=== PATIENT | female | born 1940 | race Caucasian/White ===

== ENCOUNTER 2021-02-15 11:14 | Observation (INO) ==
[2021-02-15] MEDS ORDERED: ASPIRIN CHEW 324 MG PO STA (11:47)
[2021-02-15] MEDS ORDERED: SODIUM CHLORIDE 0.9% 1000ML 500 ML IV ONE (11:48)
--- NOTE | 2021-02-15 12:18 | XRay Report ---
XR chest 1V portable HISTORY: 80 years-old Female sob acute shortness of breath COMPARISON: Chest CT 01/06/2021 TECHNIQUE: Portable AP view of the chest FINDINGS: Cardiac silhouette is enlarged. Hazy ill-defined opacities are noted throughout the left midlung and left lung base. Ill-defined right lung base opacities are also noted with mild chronic interstitial c oarsening. Degenerative changes of the shoulders and spine. IMPRESSION: Left greater than right bilateral pulmonary opacities suggests an infectious or inflammat ory pneumonitis. ACT 112: Negative or not required by law. The above report was generated using voice recognition software. It may contain grammatical, syntax o r spelling errors. Electronically signed by: Elder Hein M.D. 02/15/2021 12:17 PM
[2021-02-15 12:29] LABS: Basophils # (auto) 0.01 K/uL (0-0.2); Basophils % (auto) 0.2 %; Hematocrit (blood only) 29.1 % (37-47); Hemoglobin 10.6 g/dL (12.0-16.0); Immature Granulocytes # (auto) 0.01 K/uL (0.00-0.02); Immature Granulocytes % (auto) 0.2 %; Lymphocytes # (auto) 0.71 K/uL (1.2-3.4); Lymphocytes % (auto) 15.1 %; Mean Corpuscular Hemoglobin 31.8 pg (25-34); Mean Corpuscular Hgb Conc 36.4 g/dL (32-36); Mean Corpuscular Volume 87.4 fL (80-100); Mean Platelet Volume 10.5 fL (7.4-10.4); Monocytes # (auto) 0.32 K/uL (0.11-0.59); Monocytes % (auto) 6.8 %; Neutrophils # (auto) 3.65 K/uL (1.4-6.5); Neutrophils % (auto) 77.7 %; Platelet Count 218 K/uL (130-400); RDW Coefficient of Variation 12.6 % (11.5-14.5); RDW Standard Deviation 40.6 fL (36.4-46.3); Red Blood Count 3.33 M/uL (4.2-5.4)
[2021-02-15 12:48] LABS: BUN Creatinine Ratio 14.2 (10-20); Calcium 8.6 mg/dl (8.5-10.1); Creatinine Clr Calc Pharmacy 35.9 ml/min; Est GFR (African American) 49.6; Est GFR (Non-African American) 42.8; Potassium 3.9 mmol/L (3.5-5.1)
[2021-02-15 12:53] LABS: Troponin I 0.019 ng/ml (0-0.045)
[2021-02-15 12:59] LABS: Influenza A virus by PCR Negative (Neg); Influenza B virus by PCR Negative (Neg); RSV by PCR Negative (Neg)
--- NOTE | 2021-02-15 13:04 | Emergency Department Note ---
History of Present Illness General Chief complaint: Illness Stated complaint: COVID POSITIVE Time Seen by Provider: 02/15/21 11:46 History of Present Illness Provider complaint: Difficulty breathing weakness Onset (ago): week(s) 1 Associated symptoms: + cough, + shortness of breath and + weakness; no chest pain, no fever/chills, no headaches, no nausea/vomiting, no rash and no seizure 80-year-old female presents emergency department for difficulty breathing and weakness. Patient reports her symptoms were gone for the last week. Patient reports her and her were tested for COVID-19, she states that she tested negative however her tested positive. Patient also reports some mild nausea and vomiting. She reports some diarrhea. No hematuria hematemesis coffee-ground emesis bilious vomiting melena or hematochezia. Patient reports no fevers. No hemoptysis. Patient is on Eliquis. Home Medications Medication Instructions Recorded Confirmed Type coenzyme Q10 200 mg PO HS 08/19/19 02/07/21 History diphenhydramine HCl 25 mg capsule 25 mg PO HS PRN cap 09/09/19 02/07/21 History magnesium citrate 100 mg tablet 400 mg PO HS 09/29/20 02/07/21 History Zembright 1 cap PO HS 10/22/20 02/07/21 History cholecalciferol (vitamin D3) 50 mcg PO QAM 10/22/20 02/07/21 History [Vitamin D3] apixaban 5 mg tablet 5 mg PO BID #180 tab 11/03/20 02/07/21 Rx omeprazole 20 mg capsule,delayed 20 mg PO DAILY #90 cap 01/05/21 02/07/21 Rx release rosuvastatin 10 mg tablet 10 mg PO DAILY #90 tab 01/24/21 02/07/21 Rx tramadol 50 mg tablet 50 mg PO Q6H PRN #30 tab 02/09/21 Rx Allergies Allergy/AdvReac Type Severity Reaction Status Date / Time amoxicillin [From Amoxil] Allergy Verified 02/07/21 16:00 Past Med/Surg History Medical History MYKEL positive DVT (deep venous thrombosis) x 2 (2018 and 2019) GERD (gastroesophageal reflux disease) Helene's thyroiditis History of malignant melanoma Hyperlipidemia Meningioma MGUS (monoclonal gammopathy of unknown significance) Microscopic hematuria negative CT, negative urine cytology, cystoscopy declined by patient (see telephone note 01/11/21) Ocular migraine Osteoporosis Peripheral neuropathy Restless leg syndrome Sensorineural hearing loss (SNHL) of both ears Squamous cell skin cancer Surgical History Hx of breast biopsy Hx of foot surgery Hx of tonsillectomy Family History Sister Uterine cervix cancer Father Diabetes Mother TIA (transient ischemic attack) Stroke Denies family history of Ovarian cancer Prostate cancer Myocardial infarction Breast cancer Colorectal cancer Social History Smoking Status: Never smoker Tobacco Type: Cigarettes Second Hand Exposure: No; Hx Alcohol Use: No Hx Substance Use: No Preferred Language: [place] Communication Ability: Effective Visual Impairment: No Limitations Hearing Ability: Use of Hearing Aid Gravity Manager Required: No Beliefs That Will Affect Care: None marital status: Current Living Situation: Spouse current occupational status: retired Feels Safe at Home: Yes Childhood Exposure to Second-Hand Smoke: No caffeine: Yes Dental Care, Regularly: Yes Physical Activity Frequency: Does not Exercise Seatbelt Use: always Sunscreen Use: No Review of Systems A total of 10 systems reviewed and were otherwise negative Physical Exam Vital Signs Vital Signs - 24 hr 02/15/21 11:25 02/15/21 11:30 02/15/21 11:40 Temperature 37.5 C 37.5 C Temperature Source Oral Pulse Rate 94 H 95 H 101 H Pulse Rate [Apical] Pulse Rate from SpO2 Sensor 92 H 102 H Pulse Rhythm Regular Respiratory Rate 24 20 25 H Respiratory Depth Normal Respiratory Pattern Regular Blood Pressure 119/63 123/75 Blood Pressure [Right Arm] Blood Pressure Mean 81 91 Blood Pressure Mean [Right Arm] Blood Pressure Position Lying Pulse Oximetry 94 95 96 Oxygen Delivery Method Room Air Sepsis Recent Fever Within 48 Hours No Sepsis New/Unexplained Change in Mental Status N/A Sepsis Action Taken by Nursing No Action Required 02/15/21 12:00 02/15/21 12:09 02/15/21 13:00 Temperature Temperature Source Pulse Rate 91 H 95 H Pulse Rate [Apical] 88 Pulse Rate from SpO2 Sensor 89 89 Pulse Rhythm Respiratory Rate 21 24 16 Respiratory Depth Respiratory Pattern Blood Pressure 133/77 Blood Pressure [Right Arm] 111/62 Blood Pressure Mean 95 Blood Pressure Mean [Right Arm] 78 Blood Pressure Position Pulse Oximetry 99 92 95 Oxygen Delivery Method Sepsis Recent Fever Within 48 Hours Sepsis New/Unexplained Change in Mental Status Sepsis Action Taken by Nursing Physical Exam GENERAL: She is oriented to person, place, and time. She appears well-developed and well-nourished. She does not appear distressed. HENT: Exam performed. -Head: Normocephalic and atraumatic. -Right Ear: External ear normal. No mastoid tenderness. -Left Ear: External ear normal. No mastoid tenderness. -Mouth/Throat: The oropharynx is clear and moist. No trismus in the jaw. No dental abscesses or uvula swelling. No oropharyngeal exudate or tonsillar abscesses. EYES: Conjunctivae and EOM are normal. Pupils are equal, round, and reactive to light. Right eye exhibits no discharge. Left eye exhibits no discharge. No scleral icterus. NECK: Normal range of motion. Neck supple. No JVD present. No spinous process tenderness present. No carotid bruit present. No rigidity. No tracheal deviation and normal range of motion present. No Brudzinski's sign and no Kernig's sign noted. CV: Normal rate, regular rhythm, normal heart sounds and intact distal pulses. There is no peripheral edema. Palpable radial pulses bue. PULM/CHEST: Effort normal and breath sounds normal. No respiratory distress. No stridor. She has no wheezes. She has no rales. -Chest Wall: She exhibits no tenderness. ABD: The abdomen is soft. Bowel sounds are normal. She has no distension. No mass is present. There is no tenderness. There is no rebound, no guarding, no Jo's sign and no tenderness at McBurney's point. Rovsig negative MUSC/SKEL: Normal range of motion. There is no peripheral edema, tenderness or deformity. LYMPH: No cervical adenopathy. NEURO: She is alert and oriented to person, place, and time. She has normal strength. No cranial nerve deficit or sensory deficit. Coordination and gait normal. GCS eye subscore is 4. GCS verbal subscore is 5. GCS motor subscore is 6. Cerebellar tests wnl. SKIN: Skin is warm and dry. She is not diaphoretic. PSYCH: She has a normal mood and affect. Behavior is normal. Judgment and thought content normal. Course Course 1146: The patient was evaluated in room C10. A complete history and physical exam was performed Cardiac monitoring: An order was placed for continuous cardiac monitoring. The monitor shows a rate of 90 with sinus rhythm Patient was seen in full airborne precautions. Patient was seen in N95's, gloves, gowns, face shield by myself and staff. 1321: Vital signs stable. Labs within normal limits with exception of an elevated lipase of 2847 as well as the patient being Covid positive. Patient continues to report nausea. Patient will be admitted for pancreatitis and COVID-19. Dr. Al[facility] hospitalist has been notified. Administered Medications Discontinued Medications Aspirin (Aspirin Chew 324 Mg) 324 mg PO NOW STA Stop: 02/15/21 11:48 Last Admin: 02/15/21 12:00 Dose: 324 mg Documented by: [id number] Sodium Chloride (Nss 1000ml) 500 mls @ 999 mls/hr IV .Q31M ONE Stop: 02/15/21 12:18 Last Infusion: 02/15/21 12:34 Dose: 0 mls/hr Documented by: [id number] Admin: 02/15/21 11:59 Dose: 999 mls/hr Documented by: [id number] Medical Decision Making Laboratory Data Result diagrams: 02/15/21 12:00 02/15/21 12:00 Lab Results 02/15/21 02/15/21 02/15/21 Range/Units 11:58 11:58 12:00 WBC 4.70 L (4.8-10.8) K/uL RBC 3.33 L (4.2-5.4) M/uL Hgb 10.6 L (12.0-16.0) g/dL Hct 29.1 L (37-47) % MCV 87.4 (80-100) fL MCH 31.8 (25-34) pg MCHC 36.4 H (32-36) g/dL RDW Std Deviation 40.6 (36.4-46.3) fL RDW Coeff of Veronica 12.6 (11.5-14.5) % Plt Count 218 (130-400) K/uL MPV 10.5 H (7.4-10.4) fL Immature Gran % (Auto) 0.2 % Neut % (Auto) 77.7 % Lymph % (Auto) 15.1 % [place] % (Auto) 6.8 % Eos % (Auto) 0.0 % Baso % (Auto) 0.2 % Neut # (Auto) 3.65 (1.4-6.5) K/uL Lymph # (Auto) 0.71 L (1.2-3.4) K/uL [place] # (Auto) 0.32 (0.11-0.59) K/uL Eos # (Auto) 0.00 (0-0.5) K/uL Baso # (Auto) 0.01 (0-0.2) K/uL Immature Gran # (Auto) 0.01 (0.00-0.02) K/uL Sodium (136-145) mmol/L Potassium (3.5-5.1) mmol/L Chloride (98-107) mmol/L Carbon Dioxide (21-32) mmol/L Anion Gap (3-11) BUN (7-18) mg/dl Creatinine (0.6-1.2) mg/dl Est Cr Clr Drug Dosing ml/min Est GFR ( Amer) Est GFR (Non-Af Amer) BUN/Creatinine Ratio (10-20) Glucose (70-99) mg/dl Calcium (8.5-10.1) mg/dl Troponin I (0-0.045) ng/ml Lipase (73-393) U/L COVID-19 Eval Order CovFluRsv at [facility] SARS-CoV-2 (PCR) POSITIVE A* (Negative) Influenza Type A (PCR) Negative (Neg) Influenza Type B (PCR) Negative (Neg) RSV (RT-PCR) Negative (Neg) 02/15/21 Range/Units 12:00 WBC (4.8-10.8) K/uL RBC (4.2-5.4) M/uL Hgb (12.0-16.0) g/dL Hct (37-47) % MCV (80-100) fL MCH (25-34) pg MCHC (32-36) g/dL RDW Std Deviation (36.4-46.3) fL RDW Coeff of Veronica (11.5-14.5) % Plt Count (130-400) K/uL MPV (7.4-10.4) fL Immature Gran % (Auto) % Neut % (Auto) % Lymph % (Auto) % [place] % (Auto) % Eos % (Auto) % Baso % (Auto) % Neut # (Auto) (1.4-6.5) K/uL Lymph # (Auto) (1.2-3.4) K/uL [place] # (Auto) (0.11-0.59) K/uL Eos # (Auto) (0-0.5) K/uL Baso # (Auto) (0-0.2) K/uL Immature Gran # (Auto) (0.00-0.02) K/uL Sodium 130 L (136-145) mmol/L Potassium 3.9 (3.5-5.1) mmol/L Chloride 99 (98-107) mmol/L Carbon Dioxide 22 (21-32) mmol/L Anion Gap 9.0 (3-11) BUN 17 (7-18) mg/dl Creatinine 1.21 H (0.6-1.2) mg/dl Est Cr Clr Drug Dosing 35.9 ml/min Est GFR ( Amer) 49.6 Est GFR (Non-Af Amer) 42.8 BUN/Creatinine Ratio 14.2 (10-20) Glucose 106 H (70-99) mg/dl Calcium 8.6 (8.5-10.1) mg/dl Troponin I 0.019 (0-0.045) ng/ml Lipase 2847 H (73-393) U/L COVID-19 Eval Order SARS-CoV-2 (PCR) (Negative) Influenza Type A (PCR) (Neg) Influenza Type B (PCR) (Neg) RSV (RT-PCR) (Neg) Imaging Data Radiologist's Impression: XR chest 1V portable HISTORY: 80 years-old Female sob acute shortness of breath COMPARISON: Chest CT 01/06/2021 TECHNIQUE: Portable AP view of the chest FINDINGS: Cardiac silhouette is enlarged. Hazy ill-defined opacities are noted throughout the left midlung and left lung base. Ill-defined right lung base opacities are also noted with mild chronic interstitial coarsening. Degenerative changes of the shoulders and spine. IMPRESSION: Left greater than right bilateral pulmonary opacities suggests an infectious or inflammatory pneumonitis. ACT 112: Negative or not required by law. The above report was generated using voice recognition software. It may contain grammatical, syntax or spelling errors. Electronically signed by: Elder Hein M.D. 02/15/2021 12:17 PM Dictated: 02/15/21 121 Transcribed: 02/15/21 1215 ECG Data Indication: + SOB/dyspnea Rate (beats per minute): 90 Rhythm: + normal sinus ECG Intervals/blocks: + Normal QRS, + Normal CO and + Normal QT-c ECG ST segments: + Normal ST segments [facility] Narrative 1146: The patient was evaluated in room C10. A complete history and physical exam was performed Cardiac monitoring: An order was placed for continuous cardiac monitoring. The monitor shows a rate of 90 with sinus rhythm Patient was seen in full airborne precautions. Patient was seen in N95's, gloves, gowns, face shield by myself and staff. 1321: Vital signs stable. Labs within normal limits with exception of an elevated lipase of 2847 as well as the patient being Covid positive. Patient continues to report nausea. Patient will be admitted for pancreatitis and COVID-19. Dr. Al[facility] hospitalist has been notified. Impression & Plan COVID-19, Acute pancreatitis Discharge Plan Visit Data Chief Complaint: Illness Stated Complaint: COVID POSITIVE ED Provider: Yang Doyle Discharge Problem: COVID-19, Acute pancreatitis Patient Disposition: Admitted As Inpatient Forms Stand Alone Forms: [facility], Virtual Emergency Department, Important Visit Information Prescriptions Prescriptions: No Action Eliquis 5 mg tablet 5 mg PO BID Qty: 180 RF: 3 omeprazole 20 mg capsule,delayed release(DR/EC) 20 mg PO DAILY Qty: 90 RF: 3 rosuvastatin 10 mg tablet 10 mg PO DAILY Qty: 90 RF: 3 tramadol 50 mg tablet 50 mg PO Q6H PRN (Reason: pain) Qty: 30 RF: 0 magnesium citrate 100 mg tablet 400 mg PO HS RF: 0 diphenhydramine HCl [Benadryl] 25 mg capsule 25 mg PO HS PRN (Reason: Rash) RF: 0 coenzyme Q10 200 mg Capsule 200 mg PO HS RF: 0 cholecalciferol (vitamin D3) [Vitamin D3] 50 mcg (2,000 unit) Capsule 50 mcg PO QAM RF: 0 Zembright 1 cap PO HS RF: 0 Referrals Referrals: Deb Briseno MD [Primary Care Provider] - Discharge Problem: Acute pancreatitis Qualifiers: Pancreatitis type: unspecified pancreatitis type Acute pancreatitis complication: unspecified Qualified Code(s): K85.90 - Acute pancreatitis without necrosis or infection, unspecified
[2021-02-15 13:06] LABS: SARS CoV2 RNA(COVID-19) InHosp POSITIVE (Negative)
[2021-02-15] MEDS ORDERED: ONDANSETRON HOME PACK 4MG OD TAB PO ONE (13:20)
[2021-02-15] MEDS ORDERED: ONDANSETRON INJ 2 MG/ML 2 ML VIAL IV STA (13:24)
[2021-02-15] MEDS ORDERED: SODIUM CHLORIDE 0.9% 1000ML 1,000 ML IV ONE (13:33)
--- NOTE | 2021-02-15 13:38 | History & Physical Report ---
Date of Service February 15, 2021 Assessment & Plan (1) COVID-19: Isolation precautions Zofran as needed Moderate disease with no significant hypoxia or respiratory distress therefore further treatment deferred on admission (2) Elevated lipase: Without epigastric pain therefore not diagnosable as acute pancreatitis. No need for further imaging at this time. Suspect secondary to dehydration repeat with a.m. labs. (3) MGUS (monoclonal gammopathy of unknown significance): Noted. Repeat CBC in a.m. (4) Osteoporosis: Continue vitamin D3 50 mcg p.o. every morning (5) Peripheral neuropathy: Continue tramadol 50 mg every 6 hourly as needed (6) GERD (gastroesophageal reflux disease): Switch omeprazole for pantoprazole as needed (7) Hyperlipidemia: Continue rosuvastatin 10 mg p.o. 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 Continue apixaban 5 mg p.o. twice daily. Admission and Anticipated Discharge Date Admission Date: February 15, 2021 History of Present Illness Chief Complaint: Fatigue and generalized weakness Primary Care Provider: Deb Briseno MD Tia Pizano is a 80 year old female who presents to the ER via private vehicle with worsening shortness of breath, generalized weakness and dehydration. tested positive for Covid on February 08 and is also being admitted today. The patients symptoms started on February 05 (day 11). Symptoms include nausea (no vomiting), reduced appetite, diarrhea, fatigue, confusion, burning sensation in abdomen originally but now better. She denies any fever, chills, loss of taste or smell, nasal congestion, shortness of breath, cough, current chest or abdominal pain. In the ER CXR was concerning for pulmonary opacities suggestive of infectious or inflammatory pneumonitis and SARS-COV-2 PCR positive. She was maintaining O2 sats > 94%. However lipase was elevated at 2847 and she was referred to medicine for admission and ongoing management of pancreatitis and COVID-19 pneumonia. However she denies any current abdominal pain she note very poor appetite and feeling dehydrated. She notably has a history fo MGUS with recent CT A/P performed in December with no gallstones seen at that time. Triglycerides 63 on lab work in December. Allergies Allergy/AdvReac Type Severity Reaction Status Date / Time amoxicillin [From Amoxil] Allergy Verified 02/15/21 14:21 Home Medications Medication Instructions Recorded Confirmed Type coenzyme Q10 200 mg PO HS 08/19/19 02/15/21 History magnesium citrate 100 mg tablet 400 mg PO HS 09/29/20 02/15/21 History Zembright 1 cap PO HS 10/22/20 02/15/21 History cholecalciferol (vitamin D3) 50 mcg PO QAM 10/22/20 02/15/21 History [Vitamin D3] apixaban 5 mg tablet 5 mg PO BID #180 tab 11/03/20 02/15/21 Rx tramadol 50 mg tablet 50 mg PO Q6H PRN #30 tab 02/09/21 02/15/21 Rx omeprazole 20 mg PO DAILY PRN 02/15/21 02/15/21 History rosuvastatin 10 mg PO HS 02/15/21 02/15/21 History Past Med/Surg History Medical History MYKEL positive DVT (deep venous thrombosis) x 2 (2018 and 2019) GERD (gastroesophageal reflux disease) Helene's thyroiditis History of malignant melanoma Hyperlipidemia Meningioma MGUS (monoclonal gammopathy of unknown significance) Microscopic hematuria negative CT, negative urine cytology, cystoscopy declined by patient (see telephone note 01/11/21) Ocular migraine Osteoporosis Peripheral neuropathy Restless leg syndrome Sensorineural hearing loss (SNHL) of both ears Squamous cell skin cancer Surgical History Hx of breast biopsy Hx of foot surgery Hx of tonsillectomy Family History Sister Uterine cervix cancer Father Diabetes Mother TIA (transient ischemic attack) Stroke Denies family history of Ovarian cancer Prostate cancer Myocardial infarction Breast cancer Colorectal cancer Social History Smoking Status: Never smoker Tobacco Type: Cigarettes Second Hand Exposure: No; Hx Alcohol Use: Yes Alcohol type: wine Hx Substance Use: No Preferred Language: Slovak Communication Ability: Effective Visual Impairment: No Limitations Hearing Ability: Use of Hearing Aid Logger All Round Required: No Beliefs That Will Affect Care: None marital status: Current Living Situation: Spouse current occupational status: retired Feels Safe at Home: Yes Safety Concerns: Feels Safe At This Time Childhood Exposure to Second-Hand Smoke: No caffeine: Yes Dental Care, Regularly: Yes Physical Activity Frequency: Does not Exercise Seatbelt Use: always Sunscreen Use: No Assistive Devices: None Assistive Devices Comment: HEARING AIDS NOT WITH PT Review of Systems Review of Systems: All systems reviewed & are unremarkable except as noted in HPI & below Physical Exam Constitutional: well developed and well nourished; no acute distress Eyes: PERRL, conjunctivae normal, anicteric sclerae ENMT: Ears: no external ear abnormality Nose: no external nose abnormality Mouth: + dry oral mucous membranes Respiratory: normal respiratory effort, lungs clear to auscultation Cardiovascular: RRR, no murmur, no edema Gastrointestinal (Abdomen): normal bowel sounds, soft, nontender, no hepatosplenomegaly Musculoskeletal: no cyanosis or clubbing, extremities motor strength 5/5 Skin: no rashes, warm and dry Neurologic: moves all extremities and awake; not confused Psychiatric: A+Ox3, euthymic affect Genitourinary: no CVA tenderness Results & Data Results & Data ([facility]) Vital Signs (Past 12 Hours) Vital Signs Temp Pulse Pulse Resp BP BP Pulse Ox 02/15/21 13:00 88 16 111/62 95 02/15/21 12:09 95 H 24 133/77 92 02/15/21 12:00 91 H 21 99 02/15/21 11:40 37.5 C 101 H 25 H 96 02/15/21 11:30 95 H 20 123/75 95 02/15/21 11:25 37.5 C 94 H 24 119/63 94 Diagnostic Findings XR chest 1V portable IMPRESSION: Left greater than right bilateral pulmonary opacities suggests an infectious or inflammatory pneumonitis. Medications Administered ER medications given: NSS 500 mL bolus Aspirin 324 mg p.o. Ondansetron 4 mg IV ECG Indication: SOB/dyspnea Rate (beats per minute): 90 Rhythm: normal sinus Findings: + PVC; no acute ischemic change Comparison ECG Date: from (August 19, 2019) Change: the following changes noted (PVC now present) Code Status & VTE Plan Code Status Full VTE Prophylaxis Plan VTE Prophylaxis will be ordered: Yes PG Care Time/CCT Total # of Minutes Spent Total Time Spent with Patient: Total time spent is greater than 50% in coordination of care (as documented) at patient's floor/unit and/or counseling patient: Coding Level of Care Code 54865 Initial Inpt Care Lvl 3 Diagnoses COVID-19 U07.1 Elevated lipase R74.8 MGUS (monoclonal gammopathy of unknown significance) D47.2 Osteoporosis M81.0 Peripheral neuropathy G62.9 GERD (gastroesophageal reflux disease) K21.9 Esophagitis presence: without esophagitis Hyperlipidemia E78.5 Hyperlipidemia type: unspecified Microscopic hematuria R31.29 DVT (deep venous thrombosis) I82.451 Affected thrombotic vein of extremity: peroneal Chronicity: unspecified DVT location: lower extremity Laterality: right (1) DVT (deep venous thrombosis) Affected thrombotic vein of extremity: peroneal Chronicity: unspecified DVT location: lower extremity Laterality: right Qualified Code(s): I82.451 - Acute embolism and thrombosis of right peroneal vein (2) Hyperlipidemia Hyperlipidemia type: unspecified Qualified Code(s): E78.5 - Hyperlipidemia, unspecified (3) GERD (gastroesophageal reflux disease) Esophagitis presence: without esophagitis Qualified Code(s): K21.9 - Gastro- esophageal reflux disease without esophagitis
[2021-02-15 15:14] LABS: Albumin Level 3.1 gm/dl (3.4-5.0); Bilirubin,Total 0.7 mg/dl (0.2-1); C Reactive Protein 7.41 mg/dl (0-0.29); Total Protein 7.3 gm/dl (6.4-8.2)
--- NOTE | 2021-02-15 15:18 | Electrocardiogram Report ---
Test Reason : Blood Pressure : / mmHG Vent. Rate : 090 BPM Atrial Rate : 090 BPM P-R Int : 182 ms QRS Dur : 078 ms QT Int : 370 ms P-R-T Axes : 054 064 064 degrees QTc Int : 452 ms Poor data quality, interpretation may be adversely affected Sinus rhythm with frequent Premature ventricular complexes Otherwise normal ECG When compared with ECG of 19-AUG-2019 18:11, Premature ventricular complexes are now Present Confirmed by Abdirahman Ahmadi ([id number]) on 02/15/2021 3:17:45 PM Referred By: Confirmed By:Abdirahman Ahmadi
[2021-02-15] MEDS ORDERED: ALUMINUM/MAGNESIUM SUSP 30 ML UDC PO PRN (16:15)
[2021-02-15] MEDS ORDERED: ONDANSETRON INJ 2 MG/ML 2 ML VIAL IV PRN (16:15)
[2021-02-15] MEDS: SODIUM CHLORIDE 0.9% 1000ML 1,000 ML IV SCH ×2 (16:55→23:40)
[2021-02-15] MEDS ORDERED: traMADol HCL 50 MG TABLET PO PRN (20:26)
[2021-02-15] MEDS ORDERED: PANTOprazole 40 MG TAB PO PRN (20:26)
[2021-02-15] MEDS: ACETAMINOPHEN 325 MG TAB PO PRN (20:31)
[2021-02-15] MEDS ORDERED: NON-FORMULARY MEDICATION (Coenzyme Q10 200 mg Capsule) PO SCH (21:00)
[2021-02-15] MEDS: MAGNESIUM OXIDE 400 MG TAB PO SCH (21:36)
[2021-02-15] MEDS: APIXABAN 5 MG TABLET PO SCH (21:36)
[2021-02-15] MEDS: ROSUVASTATIN CALCIUM 10 MG TAB PO SCH (21:36)
[2021-02-16 07:40] LABS: Basophils # (auto) 0.01 K/uL (0-0.2); Basophils % (auto) 0.3 %; Eosinophils # (auto) 0.02 K/uL (0-0.5); Eosinophils % (auto) 0.7 %; Hematocrit (blood only) 36.4 % (37-47); Hemoglobin 12.6 g/dL (12.0-16.0); Immature Granulocytes # (auto) 0.01 K/uL (0.00-0.02); Immature Granulocytes % (auto) 0.3 %; Lymphocytes # (auto) 0.42 K/uL (1.2-3.4); Lymphocytes % (auto) 14.1 %; Mean Corpuscular Hemoglobin 30.7 pg (25-34); Mean Corpuscular Hgb Conc 34.6 g/dL (32-36); Mean Corpuscular Volume 88.8 fL (80-100); Mean Platelet Volume 10.2 fL (7.4-10.4); Monocytes # (auto) 0.21 K/uL (0.11-0.59); Neutrophils # (auto) 2.31 K/uL (1.4-6.5); Neutrophils % (auto) 77.6 %; Platelet Count 163 K/uL (130-400); RDW Coefficient of Variation 12.7 % (11.5-14.5); RDW Standard Deviation 41.5 fL (36.4-46.3); White Blood Count 2.98 K/uL (4.8-10.8)
[2021-02-16] MEDS: CHOLECALCIFEROL 1,000 UNITS 25 MCG TAB PO SCH (08:04)
[2021-02-16] MEDS: APIXABAN 5 MG TABLET PO SCH ×2 (08:04→21:51)
[2021-02-16 08:17] LABS: Albumin Level 2.4 gm/dl (3.4-5.0); BUN Creatinine Ratio 13.6 (10-20); Creatinine Clr Calc Pharmacy 45.2 ml/min; Est GFR (African American) 65.7; Est GFR (Non-African American) 56.6; Potassium 3.7 mmol/L (3.5-5.1)
[2021-02-16 08:32] LABS: Albumin Globulin Ratio 0.7 (0.9-2); Bilirubin,Total 0.6 mg/dl (0.2-1); Globulin 3.5 gm/dl (2.5-4.0); Total Protein 5.9 gm/dl (6.4-8.2)
--- NOTE | 2021-02-16 14:30 | Hospitalist Progress Note ---
Date of Service February 16, 2021 Assessment & Plan (1) COVID-19: Isolation precautions Zofran as needed Moderate disease with no significant hypoxia or respiratory distress therefore no dexamethasone needed still dehydrated with diarrhea, poor oral intake give aggressive fluids with LR at 200cc/hr x 2 bags (2) Elevated lipase: she does have epigastric discomfort and tender on exam today, could be a mild pancreatitis lipase up at 2900 from 2800 will give LR at 200cc/hr x 2 bags, liquid diet check Abd US at the bedside, AST up slightly but other LFT normal, specifically bili and alk phos repeat lipase and CMP in the morning (3) MGUS (monoclonal gammopathy of unknown significance): Noted WBC is 2k (4) Osteoporosis: Continue vitamin D3 50 mcg p.o. every morning (5) Peripheral neuropathy: Continue tramadol 50 mg every 6 hourly as needed (6) GERD (gastroesophageal reflux disease): Switch omeprazole for pantoprazole as needed (7) Hyperlipidemia: Continue rosuvastatin 10 mg p.o. 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 Continue apixaban 5 mg p.o. twice daily. Admission and Anticipated Discharge Date Admission Date: February 15, 2021 Subjective patient feeling a little better, not drinking very much, able to eat her lunch but has nausea no vomiting, she continues to have diarrhea, has had it for a few days at home c/o epigastric pain, breathing is stable, no cough reviewed chart and labs, Cr is stable, lipase is up a little at 2900 from 2800 WBC is 2.9, K is 3.7, LDH 376 Review of Systems Review of Systems: All systems reviewed & are unremarkable except as noted in Subjective Constitutional: + fatigue and + weakness; no fever, no chills and no sweats Respiratory: no cough and no dyspnea Cardiovascular: + lightheadedness; no chest pain, no palpitations, no syncope and no edema Gastrointestinal: + abdominal pain (epigastric), + nausea and + diarrhea/loose stools; no vomiting and no constipation Genitourinary: no dysuria Physical Exam Constitutional: WD/WN, vitals as above Neck: trachea midline, no thyromegaly Respiratory: normal respiratory effort, lungs clear to auscultation Cardiovascular: RRR, no murmur, no edema Gastrointestinal (Abdomen): Inspection/Auscultation: abdomen normal to inspection and normal bowel sounds; abdomen not distended Percussion/Palpation: + abdomen tender (epigastric), abdomen soft and + tympanic to percussion; no guarding and abdomen not rigid Musculoskeletal: no cyanosis or clubbing, extremities motor strength 5/5 Skin: no rashes, warm and dry Neurologic: patellar DTR's 2+ bilat, sensation intact and PERRL, EOMI, accommodation nl, no face palsy, no dysarthria Psychiatric: A+Ox3, euthymic affect Lymphatic: no cervical or axillary lymphadenopathy Results & Data Results & Data ([facility]) Vital Signs (Past 12 Hours) Vital Signs Temp Pulse Resp BP Pulse Ox 02/16/21 12:03 37.8 C H 73 18 115/68 96 02/16/21 08:01 37.2 C 73 16 114/70 91 02/16/21 04:38 37.0 C 78 16 92/75 L 95 Laboratory Results Laboratory Results - last 24 hr 02/15/21 02/15/21 02/15/21 12:25 13:38 15:04 WBC RBC Hgb Hct MCV MCH MCHC RDW Std Deviation RDW Coeff of Veronica Plt Count MPV Immature Gran % (Auto) Neut % (Auto) Lymph % (Auto) [place] % (Auto) Eos % (Auto) Baso % (Auto) Neut # (Auto) Lymph # (Auto) [place] # (Auto) Eos # (Auto) Baso # (Auto) Immature Gran # (Auto) Sodium Potassium Chloride Carbon Dioxide Anion Gap BUN Creatinine Est Cr Clr Drug Dosing Est GFR ( Amer) Est GFR (Non-Af Amer) BUN/Creatinine Ratio Glucose Calcium Total Bilirubin 0.7 Direct Bilirubin AST 73 H ALT 33 Alkaline Phosphatase 57 Lactate Dehydrogenase 376 H C-Reactive Protein 7.41 H Total Protein 7.3 Albumin 3.1 L Globulin Albumin/Globulin Ratio Lipase Procalcitonin < 0.05 02/16/21 02/16/21 07:26 07:26 WBC 2.98 L RBC 4.10 L Hgb 12.6 Hct 36.4 L MCV 88.8 MCH 30.7 MCHC 34.6 RDW Std Deviation 41.5 RDW Coeff of Veronica 12.7 Plt Count 163 MPV 10.2 Immature Gran % (Auto) 0.3 Neut % (Auto) 77.6 Lymph % (Auto) 14.1 [place] % (Auto) 7.0 Eos % (Auto) 0.7 Baso % (Auto) 0.3 Neut # (Auto) 2.31 Lymph # (Auto) 0.42 L [place] # (Auto) 0.21 Eos # (Auto) 0.02 Baso # (Auto) 0.01 Immature Gran # (Auto) 0.01 Sodium 139 D Potassium 3.7 Chloride 110 H Carbon Dioxide 21 Anion Gap 7.0 BUN 13 Creatinine 0.96 Est Cr Clr Drug Dosing 45.2 Est GFR ( Amer) 65.7 Est GFR (Non-Af Amer) 56.6 BUN/Creatinine Ratio 13.6 Glucose 98 Calcium 8.0 L Total Bilirubin 0.6 Direct Bilirubin AST 50 H ALT 28 Alkaline Phosphatase 50 Lactate Dehydrogenase C-Reactive Protein Total Protein 5.9 L Albumin 2.4 L Globulin 3.5 Albumin/Globulin Ratio 0.7 L Lipase 2916 H Procalcitonin Medications Administered Current Inpatient Medications Acetaminophen (Acetaminophen 325 Mg Tab) 650 mg PO Q4H PRN PRN Reason: pain/fever Stop: 03/17/21 16:14 Last Admin: 02/15/21 20:31 Dose: 650 mg Documented by: Al Hydrox/Mg Hydrox/Simethicone (Aluminum/Magnesium Susp 30 Ml Udc) 30 ml PO Q6H PRN PRN Reason: Dyspepsia Stop: 03/17/21 16:14 Apixaban (Apixaban 5 Mg Tablet) 5 mg PO BID ANTIONETTE Stop: 03/17/21 20:59 Last Admin: 02/16/21 08:04 Dose: 5 mg Documented by: Lactated Ringer's (Lr) 1,000 mls @ 200 mls/hr IV .Q5H ANTIONETTE Stop: 02/17/21 00:29 Magnesium Oxide (Magnesium Oxide 400 Mg Tab) 400 mg PO HS ANTIONETTE Stop: 03/17/21 20:59 Last Admin: 02/15/21 21:36 Dose: 400 mg Documented by: Ondansetron HCl (Ondansetron Inj 2 Mg/Ml 2 Ml Vial) 4 mg IV Q4H PRN PRN Reason: Nausea Stop: 03/17/21 16:14 Last Admin: 02/16/21 12:14 Dose: 4 mg Documented by: Pantoprazole Sodium (Pantoprazole 40 Mg Tab) 40 mg PO DAILY PRN PRN Reason: Acid Reflux Rosuvastatin Calcium (Rosuvastatin Calcium 10 Mg Tab) 10 mg PO HS ANTIONETTE Stop: 03/17/21 20:59 Last Admin: 02/15/21 21:36 Dose: 10 mg Documented by: Tramadol HCl (Tramadol Hcl 50 Mg Tablet) 50 mg PO Q6H PRN PRN Reason: pain Stop: 03/17/21 20:25 Vitamin D (Cholecalciferol 1,000 Units 25 Mcg Tab) 2,000 units PO QAM ANTIONETTE Stop: 03/18/21 08:59 Last Admin: 02/16/21 08:04 Dose: 2,000 units Documented by: PG Care Time/CCT Total # of Minutes Spent Total Time Spent with Patient: Total time spent is greater than 50% in coordination of care (as documented) at patient's floor/unit and/or counseling patient: Coding Level of Care Code 15925 Subseq Hosp Care Lvl 2 Diagnoses COVID-19 U07.1 Elevated lipase R74.8 MGUS (monoclonal gammopathy of unknown significance) D47.2 Osteoporosis M81.0 Peripheral neuropathy G62.9 GERD (gastroesophageal reflux disease) K21.9 Esophagitis presence: without esophagitis Hyperlipidemia E78.5 Hyperlipidemia type: unspecified Microscopic hematuria R31.29 DVT (deep venous thrombosis) I82.451 Affected thrombotic vein of extremity: peroneal Chronicity: unspecified DVT location: lower extremity Laterality: right (1) GERD (gastroesophageal reflux disease) Esophagitis presence: without esophagitis Qualified Code(s): K21.9 - Gastro- esophageal reflux disease without esophagitis (2) Hyperlipidemia Hyperlipidemia type: unspecified Qualified Code(s): E78.5 - Hyperlipidemia, unspecified (3) DVT (deep venous thrombosis) Affected thrombotic vein of extremity: peroneal Chronicity: unspecified DVT location: lower extremity Laterality: right Qualified Code(s): I82.451 - Acute embolism and thrombosis of right peroneal vein
[2021-02-16] MEDS: LACTATED RINGER'S 1,000 ML IV SCH ×2 (14:48→19:56)
[2021-02-16] MEDS ORDERED: LOPERAMIDE HCL 2 MG CAP PO PRN (16:11)
[2021-02-16] MEDS: ROSUVASTATIN CALCIUM 10 MG TAB PO SCH (21:51)
[2021-02-16] MEDS: MAGNESIUM OXIDE 400 MG TAB PO SCH (21:59)
[2021-02-17 07:14] LABS: Hematocrit (blood only) 35.4 % (37-47); Hemoglobin 12.6 g/dL (12.0-16.0); Mean Corpuscular Hemoglobin 31.2 pg (25-34); Mean Corpuscular Hgb Conc 35.6 g/dL (32-36); Mean Corpuscular Volume 87.6 fL (80-100); Platelet Count 200 K/uL (130-400); Red Blood Count 4.04 M/uL (4.2-5.4); White Blood Count 3.36 K/uL (4.8-10.8)
[2021-02-17 07:46] LABS: Albumin Level 2.4 gm/dl (3.4-5.0); BUN Creatinine Ratio 9.3 (10-20); Calcium 8.2 mg/dl (8.5-10.1); Creatinine Clr Calc Pharmacy 48.8 ml/min; Est GFR (African American) 71.9; Est GFR (Non-African American) 62.1; Potassium 3.6 mmol/L (3.5-5.1)
[2021-02-17 07:50] LABS: Albumin Globulin Ratio 0.6 (0.9-2); Bilirubin,Total 0.6 mg/dl (0.2-1); Total Protein 6.4 gm/dl (6.4-8.2)
[2021-02-17] MEDS: CHOLECALCIFEROL 1,000 UNITS 25 MCG TAB PO SCH (08:22)
[2021-02-17] MEDS: APIXABAN 5 MG TABLET PO SCH ×2 (08:22→21:01)
[2021-02-17] MEDS: ACETAMINOPHEN 325 MG TAB PO PRN (20:59)
[2021-02-17] MEDS: ROSUVASTATIN CALCIUM 10 MG TAB PO SCH (21:00)
[2021-02-17] MEDS: MAGNESIUM OXIDE 400 MG TAB PO SCH (21:01)
--- NOTE | 2021-02-17 21:21 | Hospitalist Progress Note ---
Date of Service February 17, 2021 Assessment & Plan (1) COVID-19: Isolation precautions Zofran as needed Moderate disease with no significant hypoxia or respiratory distress therefore no dexamethasone needed she is now fully hydrated, no further IV fluids needed eating and drinking better symptoms for over 10 days, no need to quarantine on discharge will send home tomorrow (2) Elevated lipase: she does have epigastric discomfort and tender on exam on 02/16, tenderness is now gone could represent a mild pancreatitis lipase up at 2900 on 02/16 will give LR at 200cc/hr x 2 bags, liquid diet lipase down to 2100 today, no further pain, tolerating diet bili and alk phos normal could this be viral pancreatitis? repeat CMP and lipase in the morning, no further fluids needed plan to send home tomorrow (3) MGUS (monoclonal gammopathy of unknown significance): Noted WBC is 3.36 (4) Osteoporosis: Continue vitamin D3 50 mcg p.o. every morning (5) Peripheral neuropathy: Continue tramadol 50 mg every 6 hourly as needed (6) GERD (gastroesophageal reflux disease): Switch omeprazole for pantoprazole as needed (7) Hyperlipidemia: Continue rosuvastatin 10 mg p.o. 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 Continue apixaban 5 mg p.o. twice daily. Admission and Anticipated Discharge Date Admission Date: February 15, 2021 Subjective patient doing better, no abdominal pain, no diarrhea, no nausea breathing well on room air, no cough, no chest pain, no fever lipase is down to 2100 from 2900, AST/ALT, bili and alk phos normal WBC normal she c/o a "mental fog" but otherwise doing okay will advance diet today, lipase still a little too high, want to repeat in the morning plan for discharge tomorrow I updated her daughter in [place] who is trying to arrange for extra care givers at home she is planning on visiting very soon Review of Systems Review of Systems: All systems reviewed & are unremarkable except as noted in Subjective Physical Exam Constitutional: WD/WN, vitals as above Neck: trachea midline, no thyromegaly Respiratory: normal respiratory effort, lungs clear to auscultation Cardiovascular: RRR, no murmur, no edema Gastrointestinal (Abdomen): Inspection/Auscultation: abdomen normal to inspection and normal bowel sounds; abdomen not distended Percussion/Palpation: abdomen soft and + tympanic to percussion; abdomen nontender, no guarding and abdomen not rigid Musculoskeletal: no cyanosis or clubbing, extremities motor strength 5/5 Skin: no rashes, warm and dry Neurologic: patellar DTR's 2+ bilat, sensation intact and PERRL, EOMI, accommodation nl, no face palsy, no dysarthria Psychiatric: A+Ox3, euthymic affect Lymphatic: no cervical or axillary lymphadenopathy Results & Data Results & Data ([facility]) Vital Signs (Past 12 Hours) Vital Signs Temp Pulse Resp BP Pulse Ox 02/17/21 20:00 36.6 C 78 20 128/78 96 02/17/21 15:54 36.8 C 66 20 124/74 95 02/17/21 11:13 36.5 C 73 21 103/72 95 Laboratory Results Laboratory Results - last 24 hr 02/17/21 02/17/21 06:50 06:50 WBC 3.36 L RBC 4.04 L Hgb 12.6 Hct 35.4 L MCV 87.6 MCH 31.2 MCHC 35.6 RDW Std Deviation 42.0 RDW Coeff of Veronica 13.0 Plt Count 200 MPV 10.0 Sodium 142 Potassium 3.6 Chloride 114 H Carbon Dioxide 23 Anion Gap 5.0 BUN 8 D Creatinine 0.89 Est Cr Clr Drug Dosing 48.8 Est GFR ( Amer) 71.9 Est GFR (Non-Af Amer) 62.1 BUN/Creatinine Ratio 9.3 L Glucose 102 H Calcium 8.2 L Total Bilirubin 0.6 AST 43 H ALT 34 Alkaline Phosphatase 57 Total Protein 6.4 Albumin 2.4 L Globulin 4.0 Albumin/Globulin Ratio 0.6 L Lipase 2109 H Medications Administered Current Inpatient Medications Acetaminophen (Acetaminophen 325 Mg Tab) 650 mg PO Q4H PRN PRN Reason: pain/fever Stop: 03/17/21 16:14 Last Admin: 02/17/21 20:59 Dose: 650 mg Documented by: Al Hydrox/Mg Hydrox/Simethicone (Aluminum/Magnesium Susp 30 Ml Udc) 30 ml PO Q6H PRN PRN Reason: Dyspepsia Stop: 03/17/21 16:14 Apixaban (Apixaban 5 Mg Tablet) 5 mg PO BID ANTIONETTE Stop: 03/17/21 20:59 Last Admin: 02/17/21 21:01 Dose: 5 mg Documented by: Loperamide HCl (Loperamide Hcl 2 Mg Cap) 2 mg PO Q6 PRN PRN Reason: Diarrhea Stop: 03/18/21 16:10 Last Admin: 02/16/21 16:32 Dose: 2 mg Documented by: Magnesium Oxide (Magnesium Oxide 400 Mg Tab) 400 mg PO HS [facility] Stop: 03/17/21 20:59 Last Admin: 02/17/21 21:01 Dose: 400 mg Documented by: Ondansetron HCl (Ondansetron Inj 2 Mg/Ml 2 Ml Vial) 4 mg IV Q4H PRN PRN Reason: Nausea Stop: 03/17/21 16:14 Last Admin: 02/16/21 12:14 Dose: 4 mg Documented by: Pantoprazole Sodium (Pantoprazole 40 Mg Tab) 40 mg PO DAILY PRN PRN Reason: Acid Reflux Rosuvastatin Calcium (Rosuvastatin Calcium 10 Mg Tab) 10 mg PO [facility] Stop: 03/17/21 20:59 Last Admin: 02/17/21 21:00 Dose: 10 mg Documented by: Tramadol HCl (Tramadol Hcl 50 Mg Tablet) 50 mg PO Q6H PRN PRN Reason: pain Stop: 03/17/21 20:25 Vitamin D (Cholecalciferol 1,000 Units 25 Mcg Tab) [facility] Stop: 03/18/21 08:59 Last Admin: 02/17/21 08:22 Dose: 2,000 units Documented by: PG Care Time/CCT Total # of Minutes Spent Total Time Spent: 33 Total Time Spent with Patient: Total time spent is greater than 50% in coordination of care (as documented) at patient's floor/unit and/or counseling patient: two separate visits with patient, lots of questions, total time at bedside 18 minutes 5 minutes on the phone with her daughter in [place] 10 minutes to review chart, documentation Coding Level of Care Code 47931 Subseq Hosp Care Lvl 3 Diagnoses COVID-19 U07.1 Elevated lipase R74.8 MGUS (monoclonal gammopathy of unknown significance) D47.2 Osteoporosis M81.0 Peripheral neuropathy G62.9 GERD (gastroesophageal reflux disease) K21.9 Esophagitis presence: without esophagitis Hyperlipidemia E78.5 Hyperlipidemia type: unspecified Microscopic hematuria R31.29 DVT (deep venous thrombosis) I82.451 Affected thrombotic vein of extremity: peroneal Chronicity: unspecified DVT location: lower extremity Laterality: right (1) GERD (gastroesophageal reflux disease) Esophagitis presence: without esophagitis Qualified Code(s): K21.9 - Gastro- esophageal reflux disease without esophagitis (2) Hyperlipidemia Hyperlipidemia type: unspecified Qualified Code(s): E78.5 - Hyperlipidemia, unspecified (3) DVT (deep venous thrombosis) Affected thrombotic vein of extremity: peroneal Chronicity: unspecified DVT location: lower extremity Laterality: right Qualified Code(s): I82.451 - Acute embolism and thrombosis of right peroneal vein
[2021-02-18 06:36] LABS: Hematocrit (blood only) 35.8 % (37-47); Hemoglobin 12.3 g/dL (12.0-16.0); Mean Corpuscular Hemoglobin 30.8 pg (25-34); Mean Corpuscular Hgb Conc 34.4 g/dL (32-36); Mean Corpuscular Volume 89.7 fL (80-100); Platelet Count 239 K/uL (130-400); RDW Standard Deviation 42.7 fL (36.4-46.3); Red Blood Count 3.99 M/uL (4.2-5.4); White Blood Count 3.96 K/uL (4.8-10.8)
[2021-02-18 07:14] LABS: Albumin Level 2.4 gm/dl (3.4-5.0); BUN Creatinine Ratio 10.2 (10-20); Calcium 8.5 mg/dl (8.5-10.1); Creatinine Clr Calc Pharmacy 45.7 ml/min; Est GFR (African American) 66.5; Est GFR (Non-African American) 57.4; Potassium 3.7 mmol/L (3.5-5.1)
[2021-02-18 07:17] LABS: Albumin Globulin Ratio 0.7 (0.9-2); Bilirubin,Total 0.5 mg/dl (0.2-1); Globulin 3.5 gm/dl (2.5-4.0); Total Protein 5.9 gm/dl (6.4-8.2)
[2021-02-18] MEDS: APIXABAN 5 MG TABLET PO SCH (09:02)
[2021-02-18] MEDS: CHOLECALCIFEROL 1,000 UNITS 25 MCG TAB PO SCH (09:02)
--- NOTE | 2021-02-18 09:26 | Discharge Summary ---
Date of Service February 18, 2021 Admission HPI Per Admitting Provider Tia Pizano is a 80 year old female who presents to the ER via private vehicle with worsening shortness of breath, generalized weakness and dehydration. tested positive for Covid on February 08 and is also being admitted today. The patients symptoms started on February 05 (day 11). Symptoms include nausea (no vomiting), reduced appetite, diarrhea, fatigue, confusion, burning sensation in abdomen originally but now better. She denies any fever, chills, loss of taste or smell, nasal congestion, shortness of breath, cough, current chest or abdominal pain. In the ER CXR was concerning for pulmonary opacities suggestive of infectious or inflammatory pneumonitis and SARS-COV-2 PCR positive. She was maintaining O2 sats > 94%. However lipase was elevated at 2847 and she was referred to medicine for admission and ongoing management of pancreatitis and COVID-19 pneumonia. However she denies any current abdominal pain she note very poor appetite and feeling dehydrated. She notably has a history fo MGUS with recent CT A/P performed in December with no gallstones seen at that time. Triglycerides 63 on lab work in December. Principal Diagnosis COVID 19 infection, pancreatitis Discharge Exam Constitutional WD/WN, vitals as above Neck trachea midline, no thyromegaly Respiratory normal respiratory effort, lungs clear to auscultation Cardiovascular RRR, no murmur, no edema Gastrointestinal (Abdomen) Inspection/Auscultation: abdomen normal to inspection and normal bowel sounds; abdomen not distended Percussion/Palpation: abdomen soft and + tympanic to percussion; abdomen nontender, no guarding and abdomen not rigid Musculoskeletal no cyanosis or clubbing, extremities motor strength 5/5 Skin no rashes, warm and dry Neurologic patellar DTR's 2+ bilat, sensation intact and PERRL, EOMI, accommodation nl, no face palsy, no dysarthria Psychiatric A+Ox3, euthymic affect Lymphatic no cervical or axillary lymphadenopathy Discharge Data Allergies Allergy/AdvReac Type Severity Reaction Status Date / Time amoxicillin [From Amoxil] Allergy Verified 02/15/21 14:21 Consultations 02/15/21 13:26 ED Decision to Admit Stat Hospital Course (1) COVID-19: Moderate disease with no significant hypoxia or respiratory distress therefore no dexamethasone needed saturations 95% entire visit she is now fully hydrated, no further IV fluids needed eating and drinking better symptoms for over 10 days, no need to quarantine on discharge discharge to home with home health of note, she does c/o "brain fog" which can be common with COVID, mild encephalopathy her family will be checking on her and her daughter will fly in to town on Wednesday 02/21 (2) Acute pancreatitis: she did have epigastric discomfort and tender on exam on 02/16, tenderness is now gone could represent a mild pancreatitis lipase up at 2900 on 02/16 will give LR at 200cc/hr x 2 bags, liquid diet lipase down to 1700 on discharge, no further pain, tolerating diet bili and alk phos normal could this be viral pancreatitis? instructed to stay well hydrated, low fat diet, monitor for any worsening pain (3) Elevated lipase: see above down to 1700 on discharge (4) MGUS (monoclonal gammopathy of unknown significance): Noted WBC is 3.36 (5) Osteoporosis: Continue vitamin D3 50 mcg p.o. every morning (6) Peripheral neuropathy: Continue tramadol 50 mg every 6 hourly as needed (7) GERD (gastroesophageal reflux disease): Switch omeprazole for pantoprazole as needed (8) Hyperlipidemia: Continue rosuvastatin 10 mg p.o. 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 Continue apixaban 5 mg p.o. twice daily. Total Time Total Time Spent Total Time Spent (In Minutes): 33 Total Time Includes: Examination of the Patient, Discharge Planning and Medication Reconciliation Discharge Plan Discharge Items Patient Disposition: Home - Home Health Services Reason For Visit: COVID-19 PNEUMONIA, ELEVATED LIPASE Discharge Diagnosis: COVID 19 Mild pancreatitis Condition on Discharge: Good Goals: stay well rested, well hydrated, well nourished Activity: Resume your previous activity Non-emergency contact: Primary Care Provider Call non-emergency contact if: you have any medication questions Follow-up/Referrals: Deb Briseno MD [Primary Care Provider] - 02/25/21 10:30 am (one week) Diet: Low Fat Addtl Attending Provider Instructions: Medications: no changes COVID 19 infection: primary symptoms were weakness, epigastric pain, diarrhea, "brain fog" no evidence of pneumonia on imaging, you never required oxygen, no need to treat with dexamethasone you can be removed from isolation, it is safe for friends or family to visit you at home, they can wear a mask stay well hydrated, well nourished, get rest and gradually increase activity at home Mild pancreatitis, improving/resolved lipase is going down, liver enzymes have been normal follow a low fat diet for next week, no greasy foods smaller, more frequent meals are good, drink plenty of fluids (water, Gatorade, Vitamin Water) Pending Studies at Discharge: No Stand-Alone Forms: [facility], Sm[facility] Cess[facility] Medications and DC Order Prescriptions: New ondansetron 4 mg tablet,disintegrating 4 mg PO Q8H PRN (Reason: nausea and vomiting) Qty: 14 RF: 0 Continued Eliquis 5 mg tablet 5 mg PO BID Qty: 180 RF: 3 tramadol 50 mg tablet 50 mg PO Q6H PRN (Reason: pain) Qty: 30 RF: 0 magnesium citrate 100 mg tablet 400 mg PO HS RF: 0 coenzyme Q10 200 mg Capsule 200 mg PO HS RF: 0 cholecalciferol (vitamin D3) [Vitamin D3] 50 mcg (2,000 unit) Capsule 50 mcg PO QAM RF: 0 [place] 1 cap PO HS RF: 0 omeprazole 20 mg capsule,delayed release(DR/EC) 20 mg PO DAILY PRN (Reason: Acid Reflux) RF: 0 rosuvastatin 10 mg tablet 10 mg PO HS RF: 0 Discharge Orders: Discharge Order (Routine); Ordered 02/18/21 Ordered By: Stuart Culver Admission Data Admit Date/Time: 02/15/21 14:24 Attending Provider: Stuart Culver Admit Provider: Harley Alston Primary Care Provider: Deb Briseno Other Providers: Harley Alston ; [facility],Home Healthcare Other Interventions: Discharge Summary Assessment (RN) Last Done: 02/18/21 12:16 Coding Level of Care Code D/C Day Management >30 mins Diagnoses COVID-19 U07.1 Acute pancreatitis K85.90 Acute pancreatitis complication: unspecified Pancreatitis type: unspecified pancreatitis type Elevated lipase R74.8 MGUS (monoclonal gammopathy of unknown significance) D47.2 Osteoporosis M81.0 Peripheral neuropathy G62.9 GERD (gastroesophageal reflux disease) K21.9 Esophagitis presence: without esophagitis Hyperlipidemia E78.5 Hyperlipidemia type: unspecified Microscopic hematuria R31.29 DVT (deep venous thrombosis) I82.451 Affected thrombotic vein of extremity: peroneal Chronicity: unspecified DVT location: lower extremity Laterality: right
== END 2021-02-18 15:00 | disposition home health service (06) ==
LOC: ED 11:14 → 2E 11:14 → SUATTDRO 14:24 → 2E 15:32